=== PATIENT | female | born 1955 | race Caucasian/White ===

== ENCOUNTER 2017-11-18 12:10 | Emergency (ER) | payer MEDICARE, BC ==
[~2017-11-18] VITALS: Ht 167.6 cm; Wt 82.5 kg
[2017-11-18] MEDS ORDERED: ATENOLOL25 MG PO (12:40)
[2017-11-18] MEDS ORDERED: LIPITOR10 MG PO (12:40)
[2017-11-18] MEDS ORDERED: BUTORPHANOL NAS (12:41)
[2017-11-18] MEDS ORDERED: BUSPIRONE HCL5 MG PO (12:41)
[2017-11-18] MEDS ORDERED: POTASSIUM CITR10 MEQ PO (12:41)
[2017-11-18] MEDS ORDERED: TRAZODONE HCL100 MG PO (12:42)
[2017-11-18] MEDS ORDERED: RISPERDAL1 MG PO (12:42)
[2017-11-18] MEDS ORDERED: SEROQUEL25 MG PO (12:43)
[2017-11-18] MEDS ORDERED: PROZAC20 MG PO (12:43)
[2017-11-18] MEDS ORDERED: BACTRIM DS TAB1 EACH PO (12:44)
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
[2017-11-18] MEDS ORDERED: FLOMAX0.4 MG PO (16:00)
[2017-11-18] MEDS ORDERED: ONDANSETRON ODT8 MG PO (16:00)
[2017-11-18] MEDS ORDERED: HYDROMORPHONE HC2 MG PO (16:00)
== END 2017-11-18 16:38 | disposition home or self-care (01) ==
LOC: ED 12:10
DX: N13.2 Hydronephrosis with renal and ureteral calculous obstruction (principal); Z87.891 Personal history of nicotine dependence; Z88.0 Allergy status to penicillin; Z88.1 Allergy status to other antibiotic agents; Z79.899 Other long term (current) drug therapy
CPT/HCPCS: 74176; 80053; 81001; 85025; 96361; 96374; 96375; 99284; J1170; J1885; J2405; J7030